=== PATIENT | female | born 1995 | race Caucasian/White ===

== ENCOUNTER 2021-07-18 17:07 | Emergency (ER) | payer BC, OTHER ==
[~2021-07-18] VITALS: Ht 162.6 cm; Wt 59.1 kg
[2021-07-18 18:50] VITALS: BP 117/68
== END 2021-07-18 19:45 | disposition home or self-care (01) ==
LOC: EMS 17:09
DX: K05.10 Chronic gingivitis, plaque induced (principal); K13.79 Other lesions of oral mucosa; F41.9 Anxiety disorder, unspecified; F32.9 Major depressive disorder, single episode, unspecified
CPT/HCPCS: 99283